=== PATIENT | female | born 1965 | race African-American/Black ===

== ENCOUNTER 2020-08-24 10:58 | Emergency (ER) | payer OTHER ==
[~2020-08-24] VITALS: Ht 167.6 cm; Wt 56.0 kg
[~2020-08-24 10:58] MED LIST: [UNRECOGNIZED DRUG - REMARK]
[2020-08-24 11:01] VITALS: BP 155/91
[2020-08-24] MEDS ORDERED: LORAZEPAM 1MG TABLET PO ONE (11:45)
== END 2020-08-24 12:11 | disposition home or self-care (01) ==
LOC: ER 10:58
DX: F41.0 Panic disorder [episodic paroxysmal anxiety] (principal); F43.9 Reaction to severe stress, unspecified; I10 Essential (primary) hypertension; F32.9 Major depressive disorder, single episode, unspecified; Z88.3 Allergy status to other anti-infective agents
CPT/HCPCS: 93005; 99283